=== PATIENT | male | born 1995 | race Caucasian/White ===

== ENCOUNTER 2018-06-16 18:22 | Emergency (ER) | payer OTHER ==
[2018-06-16 18:28] VITALS: BP 112/65; PULSE 71; TEMP 98.2; BMI 29.0
--- NOTE | 2018-06-16 18:31 | PDOC ---
Rapid Medical Evaluation Chief Complaint: Chest Pain Time Seen by Provider: 06/16/18 18:29 Medical Evaluation: Allergies Allergy/AdvReac Type Severity Reaction Status Date / Time No Known Allergies Allergy Verified 06/16/18 18:25 Vital Signs Temp Pulse Resp BP Pulse Ox 98.2 F 71 16 112/65 99 06/16/18 18:25 06/16/18 18:25 06/16/18 18:25 06/16/18 18:25 06/16/18 18:25 06/16/18 18:30 Pt c/o: cough, wheeze, aching chest pain with deep breathing and coughing, no fever, hx asthma Pt on brief exam: vss, lcta pt ordered for: none pt to proceed to the ED Discharge Disposition - Diagnosis Cough - Referrals - Patient Instructions - Post Discharge Activity
--- NOTE | 2018-06-16 19:19 | PDOC ---
History of Present Illness - General Chief Complaint: Chest Pain Stated Complaint: CHEST PAIN Time Seen by Provider: 06/16/18 18:29 - History of Present Illness Initial Comments: 06/16/18 19:17 23-year-old male with a cough and posttussive chest pain for the last 5 days without systemic symptoms. Cough is nonproductive. He has no comorbidities. Past History - Past Medical History Allergies/Adverse Reactions: Allergies Allergy/AdvReac Type Severity Reaction Status Date / Time No Known Allergies Allergy Verified 06/16/18 18:25 Home Medications: Ambulatory Orders NK [No Known Home Medication] 06/16/18 COPD: No - Immunization History Immunization Up to Date: Yes - Suicide/Smoking/Psychosocial Hx Smoking History: Never smoked Hx Alcohol Use: No Drug/Substance Use Hx: No Substance Use Type: None Review of Systems - Review of Systems Constitutional: No: Chills, Diaphoresis, Fever, Malaise, Night Sweats Respiratory: Yes: Cough Cardiac (ROS): Yes: See HPI, Chest Pain *Physical Exam - Vital Signs Last Vital Signs Temp Pulse Resp BP Pulse Ox 98.2 F 71 16 112/65 99 06/16/18 18:25 06/16/18 18:25 06/16/18 18:25 06/16/18 18:25 06/16/18 18:25 - Physical Exam Comments: 06/16/18 19:17 HEAD: NC/AT EYES: Conjuntiva clear Ears: Canals and TM's normal NOSE: No d/c THROAT: Moist mucous membrances, oral pharanx clear, uvula midline NECK: Supple without adenopathy CARDIAC: S1 S2 LUNGS: CTA Full and Equal breath sounds ABDOMEN: Soft NT ND MS: Full ROM in all joints without edema NEUROLOGIC: No gross sensory or motor deficits, NVID SKIN: Normal color and temperature no lesions or rashes *DC/Admit/Observation/Transfer Diagnosis at time of Disposition: Cough, URI (upper respiratory infection) - Discharge Dispostion Disposition: HOME Condition at time of disposition: Stable Decision to Admit order: No - Referrals Referrals: Hernandez Perez MD [Non Staff, Medical] - Russell Emmanuel MD [Non Staff, Medical] - - Patient Instructions Printed Discharge Instructions: DI for Viral Upper Respiratory Infection -- Adult Additional Instructions: Return to the emergency room should symptoms worsen or go unresolved. May take Mucinex DM for cough symptoms otherwise follow-up with internal medicine for further evaluation and treatment options. - Post Discharge Activity
== END 2018-06-16 19:20 | disposition home or self-care (01) ==
LOC: JERFT 18:22
DX: J06.9 Acute upper respiratory infection, unspecified (principal)
CPT/HCPCS: 99281-25